=== PATIENT | female | born 1960 | race Two or more races ===

== ENCOUNTER 2020-11-20 05:42 | Day surgery (SDC) | payer OTHER, SELFPAY ==
[~2020-11-20] VITALS: Ht 152.4 cm; Wt 73.5 kg
[2020-11-20] MEDS ORDERED: diphenhydrAMINE 50 MG/ML VIAL ONE (07:23)
[2020-11-20] MEDS ORDERED: LIDOCAINE 2% 100 MG/5 ML UJET TP ONE ×2 (07:23→08:45)
[2020-11-20] MEDS ORDERED: fentaNYL citrate 0.05 MG/ML VIAL ONE (07:23)
[2020-11-20] MEDS ORDERED: MIDAZOLAM 5 MG/5 ML VIAL ONE (07:23)
[2020-11-20] MEDS ORDERED: EPINEPHrine PFS 0.1 MG/ML SYR IVP ONE ×2 (08:15→08:35)
[2020-11-20] MEDS ORDERED: MIDAZOLAM 2 MG/2 ML VIAL IVP ONE (08:35)
[2020-11-20] MEDS ORDERED: fentaNYL citrate 0.05 MG/ML VIAL IVP ONE (08:35)
== END 2020-11-20 09:00 | disposition home or self-care (01) ==
LOC: MDS 05:42 → MMU 05:45 → MDS 09:00
PROVIDERS: ATTEND Internal Medicine Gastroenterology
DX: R19.5 Other fecal abnormalities (principal); D12.2 Benign neoplasm of ascending colon; D12.4 Benign neoplasm of descending colon; E78.5 Hyperlipidemia, unspecified; E11.9 Type 2 diabetes mellitus without complications; Z79.82 Long term (current) use of aspirin; Z79.84 Long term (current) use of oral hypoglycemic drugs; Z79.899 Other long term (current) drug therapy; Z20.828 Contact with and (suspected) exposure to other viral communicable diseases
CPT/HCPCS: 45380; 45381; 45385; 88305; J0171; J2250; J3010; U0003; J1200